=== PATIENT | male | born 1960 | race Two or more races ===

== ENCOUNTER 2018-11-02 20:06 | Emergency (ER) | payer OTHER ==
[~2018-11-02] VITALS: Ht 182.9 cm; Wt 99.8 kg
--- NOTE | 2018-11-02 20:07 | NUR ---
ED Nurse Note: Patient presents with shortness of breath, anxiety and combative. Patient unwilling to cooperate and shows disdain for normal processes. Blood drawn IV started at left AC 20G.
[2018-11-02] MEDS ORDERED: ACETAZOLAMIDE250 MG ORAL (20:14)
[2018-11-02] MEDS ORDERED: ATORVASTATIN CA20 MG ORAL (20:14)
[2018-11-02] MEDS ORDERED: LOSARTAN POTASS50 MG ORAL (20:14)
[2018-11-02] MEDS ORDERED: Ipratropium 0.02% Inh Soln 2.5ml UD HHN ONE ×2 (20:15→20:45)
[2018-11-02] MEDS ORDERED: LORazepam Inj 2mg/ml 1ml IM ONE (20:15)
[2018-11-02] MEDS ORDERED: Albuterol ud Inhalation HHN ONE ×2 (20:15→20:45)
[2018-11-02] MEDS ORDERED: SEROQUEL200 MG ORAL (20:15)
--- NOTE | 2018-11-02 20:30 | NUR ---
ED Nurse Note: Respiratory at bedside. Patient undergoing breathing treatment.
[2018-11-02 20:32] VITALS: BP 117/84
[2018-11-02 21:09] LABS: HEMATOCRIT 42.7 % (42.0-52.0); HEMOGLOBIN 13.8 G/DL (14.2-18.0); MEAN CORPUSCULAR VOLUME 84 FL (80-99); PLATELET COUNT 96 K/UL (150-450); RED BLOOD COUNT 5.05 M/UL (4.70-6.10); RED CELL DISTRIBUTION WIDTH 14.2 % (11.6-14.8); WHITE BLOOD COUNT 5.3 K/UL (4.8-10.8)
[2018-11-02 21:10] LABS: ANION GAP 16 mmol/L (5-15); BASOPHILS % (AUTO) 1.6 % (0.0-2.0); BLOOD UREA NITROGEN 18 mg/dL (7-18); CALCIUM 9.3 MG/DL (8.5-10.1); CARBON DIOXIDE 19 MMOL/L (21-32); CHLORIDE 106 MMOL/L (98-107); CREATININE 1.6 MG/DL (0.55-1.30); EOSINOPHILS % (AUTO) 1.9 % (0.0-3.0); LYMPHOCYTES % (AUTO) 45.4 % (20.0-45.0); MONOCYTES % (AUTO) 9.2 % (1.0-10.0); NEUTROPHILS % (AUTO) 41.9 % (45.0-75.0); POTASSIUM 4.2 MMOL/L (3.5-5.1); SODIUM 141 MMOL/L (136-145)
[2018-11-02 21:24] LABS: ALANINE AMINOTRANSFERASE 38 U/L (12-78); ALBUMIN/GLOBULIN RATIO 0.9 (1.0-2.7); ALKALINE PHOSPHATASE 145 U/L (46-116); ASPARTATE AMINO TRANSFERASE 38 U/L (15-37); BILIRUBIN,TOTAL 0.5 MG/DL (0.2-1.0); CKMB 2.2 NG/ML (0.0-3.6); CREATINE KINASE 230 U/L (26-308)
--- NOTE | 2018-11-02 21:30 | NUR ---
ED Nurse Note: Patietn combative, but agreed to provide urine sample. Patient is having difficulty relaxing.
[2018-11-02] MEDS ORDERED: Haloperidol 5mg/ml Inj IM ONE (22:00)
--- NOTE | 2018-11-02 22:10 | Emergency Room Report ---
History of Present Illness General Chief Complaint: Dyspnea/Respdistress Source: Patient Present Illness HPI 58-year-old male presents ED for evaluation. Brought in by EMS for respiratory distress. Coming from assisted living facility for reported hypoxia by nursing staff today. Patient was being placed on oxygen by EMS but patient refused and was pulling mask away. Patient does have psychiatric history of schizophrenia. Upon arrival patient is agitated and combative. Pulling off lines refusing vitals. Patient states he feels short of breath. Denies chest pain. Denies fevers or chills. No other aggravating relieving factors. No other associated symptoms Allergies: Coded Allergies: No Known Allergies (Unverified , 11/02/18) Patient History Past Medical History: HTN, CHF, psych hx Past Surgical History: none Pertinent Family History: none Social History: Denies: smoking, alcohol use, drug use Immunizations: UTD Reviewed Nursing Documentation: PMH: Agreed; PSxH: Agreed Nursing Documentation-PMH Past Medical History: No History, Except For Review of Systems All Other Systems: negative except mentioned in HPI Physical Exam Vital Signs Date Time Temp Pulse Resp B/P (MAP) Pulse Ox O2 Delivery O2 Flow Rate FiO2 11/02/18 19:59 80 Non-Rebreather 15.0 11/02/18 19:59 87 28 11/02/18 20:20 21 11/02/18 20:32 117/84 Sp02 EP Interpretation: reviewed, normal General Appearance: no apparent distress, alert, GCS 15, non-toxic, mild distress, obese Head: normocephalic, atraumatic Eyes: bilateral eye other - blind ENT: hearing grossly normal, normal pharynx, no angioedema, normal voice Neck: full range of motion, supple/symm/no masses Respiratory: decreased breath sounds, crackles Cardiovascular #1: no edema, tachycardia Cardiovascular #2: 2+ carotid (R), 2+ carotid (L), 2+ radial (R), 2+ radial (L) , 2+ dorsalis pedis (R), 2+ dorsalis pedis (L) Gastrointestinal: normal bowel sounds, non tender, soft, non-distended, no guarding, no rebound Rectal: deferred Genitourinary: normal inspection, no CVA tenderness Musculoskeletal: back normal, gait/station normal, normal range of motion, non- tender Neurologic: alert, oriented x3, responsive, motor strength/tone normal, sensory intact, speech normal Psychiatric: no suicidal/homicidal ideation, no delusions, anxious Reflexes: 3+ bicep (R), 3+ bicep (L), 3+ tricep (R), 3+ tricep (L), 3+ knee (R) , 3+ knee (L) Skin: normal color, no rash, warm/dry, well hydrated Lymphatic: no adenopathy Medical Decision Making Diagnostic Impression: Primary Impression: Respiratory distress Additional Impressions: CHF (congestive heart failure) Qualified Codes: I50.9 - Heart failure, unspecified Elevated troponin Renal insufficiency Schizophrenia Qualified Codes: F20.9 - Schizophrenia, unspecified ER Course Hospital Course 58-year-old male presents with shortness of breath. Agitated and combative Differential diagnoses include: OK/unstable angina, contusion, muscle strain, PTX, rib fracture Clinical course Patient placed on stretcher. on monitoring coordinator. After initial history and physical I ordered labs, EKG, chest x-ray, nebs, ativan labs reviewed- no leukocytosis, hemoglobin/hematocrit stable, BUN/Cr elevated, troponins 0.173, BNP elevated EKG - sinus tachycardia no acute ischemic changes interpreted by me Chest x-ray- cardiomegaly, CHF Patient's respiratory status improved somewhat after breathing treatments. Patient still agitated and combative and refusing treatment pulling lines pulling BP cough. Patient given Haldol. given aspirin Patient denies chest pain Because of insurance patient will be transferred I. I feel this is a highly complex case requiring extensive working including EKG/Rhythm strip, Xray/CT/US, Blood/urine lab work, repeat exams while in ED, and administration of strong opiates/narcotics for pain control, admission to hospital or close patient follow up. Diagnosis - respiratory distress, CHF, elevated troponin, renal insufficiency, schizophrenia transferred in serious condition Labs Test 11/02/18 20:20 White Blood Count 5.3 K/UL (4.8-10.8) Red Blood Count 5.05 M/UL (4.70-6.10) Hemoglobin 13.8 G/DL (14.2-18.0) Hematocrit 42.7 % (42.0-52.0) Mean Corpuscular Volume 84 FL (80-99) Mean Corpuscular Hemoglobin 27.3 PG (27.0-31.0) Mean Corpuscular Hemoglobin Concent 32.3 G/DL (32.0-36.0) Red Cell Distribution Width 14.2 % (11.6-14.8) Platelet Count 96 K/UL (150-450) Mean Platelet Volume 8.4 FL (6.5-10.1) Neutrophils (%) (Auto) 41.9 % (45.0-75.0) Lymphocytes (%) (Auto) 45.4 % (20.0-45.0) Monocytes (%) (Auto) 9.2 % (1.0-10.0) Eosinophils (%) (Auto) 1.9 % (0.0-3.0) Basophils (%) (Auto) 1.6 % (0.0-2.0) Sodium Level 141 MMOL/L (136-145) Potassium Level 4.2 MMOL/L (3.5-5.1) Chloride Level 106 MMOL/L (98-107) Carbon Dioxide Level 19 MMOL/L (21-32) Anion Gap 16 mmol/L (5-15) Blood Urea Nitrogen 18 mg/dL (7-18) Creatinine 1.6 MG/DL (0.55-1.30) Estimat Glomerular Filtration Rate 44.3 mL/min (>60) Glucose Level 166 MG/DL (74-106) Calcium Level 9.3 MG/DL (8.5-10.1) Total Bilirubin 0.5 MG/DL (0.2-1.0) Aspartate Amino Transf (AST/SGOT) 38 U/L (15-37) Alanine Aminotransferase (ALT/SGPT) 38 U/L (12-78) Alkaline Phosphatase 145 U/L (46-116) Total Creatine Kinase 230 U/L (26-308) Creatine Kinase MB 2.2 NG/ML (0.0-3.6) Creatine Kinase MB Relative Index 0.9 Troponin I 0.173 ng/mL (0.000-0.056) Pro-B-Type Natriuretic Peptide 1739 pg/mL (0-125) Total Protein 8.7 G/DL (6.4-8.2) Albumin 4.0 G/DL (3.4-5.0) Globulin 4.7 g/dL Albumin/Globulin Ratio 0.9 (1.0-2.7) EKG Diagnostic Results Rate: tachycardiac Rhythm: NSR ST Segments: no acute changes ASA given to the pt in ED: Yes Rhythm Strip Diag. Results EP Interpretation: yes Rhythm: NSR, no PVC's, no ectopy Chest X-Ray Diagnostic Results Chest X-Ray Diagnostic Results : Chest X-Ray Ordered: Yes # of Views/Limited/Complete: 1 View Indication: Shortness of Breath EP Interpretation: Yes Interpretation: no consolidation, no pneumothorax, other - cardiomegaly Impression: Other - chf Electronically Signed by: Electronically signed by Gene Lai MD Last Vital Signs Date Time Temp Pulse Resp B/P (MAP) Pulse Ox O2 Delivery O2 Flow Rate FiO2 11/02/18 21:01 103 21 100 Room Air 21 11/02/18 20:32 15.0 11/02/18 20:32 117/84 Status: improved Disposition: ADMITTED INPATIENT Condition: Serious Referrals: Artemio Connolly MD (PCP) Gene Lai MD November 02, 2018 22:10
--- NOTE | 2018-11-02 22:25 | NUR ---
ED Nurse Note: Patien requested a pillow, he agreed to lie down.
[2018-11-02 23:20] VITALS: BP 117/84
--- NOTE | 2018-11-02 23:20 | NUR ---
ED Nurse Note: PAtient cleared for transport to [facility]. Report given to BLS.
--- NOTE | 2018-11-02 23:31 | NUR ---
ED Nurse Note: Called and gave report to Julia VELIZ over at [facility]. Patient is already in rout to [facility] location.
--- NOTE | 2018-11-03 09:31 | Diagnostic Imaging Report ---
Indication: Dyspnea Comparison: None A single view chest radiograph was obtained. Findings: No definite infiltrate or pulmonary vascular congestion identified. The heart is mildly enlarged. The aorta is mildly enlarged consistent with atherosclerotic vascular disease. The bones are unremarkable. Impression: No acute disease
== END 2018-11-02 23:25 | disposition other institution (70) ==
LOC: EDBD 20:06 → EMR 21:10 → EDBEDREQ 21:45 → EMR 23:25
DX: R06.03 Acute respiratory distress (principal); F20.9 Schizophrenia, unspecified; I11.0 Hypertensive heart disease with heart failure; I50.9 Heart failure, unspecified; R79.89 Other specified abnormal findings of blood chemistry; N28.9 Disorder of kidney and ureter, unspecified; R45.1 Restlessness and agitation; R00.0 Tachycardia, unspecified; I51.7 Cardiomegaly
CPT/HCPCS: 36415; 71045; 80053; 82550; 82553; 83880; 84484; 85025; 94640; 94664; 96361; 96372; 96374; 99285; J1630; S0028